=== PATIENT | female | born 1955 | race African-American/Black ===

== ENCOUNTER 2018-05-11 12:52 | Emergency (ER) | payer MEDICAID ==
[~2018-05-11] VITALS: Ht 160 cm; Wt 83.0 kg
[~2018-05-11 12:52] MED LIST: ALBU8.5H8 IH; AMLO2.5T29 PO; CODE118S2 PO; FLUT110HFA IH; GABA-318 PO; HYD25 PO; HYDR-3965 PO; IPRA4AER IH; LOVA10TA2 PO; OMEPRAZOLE PO; TOPI50TA24 PO
[2018-05-11] MEDS ORDERED: HYDROCODONE/ACETAMINOPHEN 5-325 MG TABLET PO ONE (14:00)
[2018-05-11 15:42] VITALS: BP 132/77
== END 2018-05-11 16:04 | disposition home or self-care (01) ==
LOC: EMS 12:55
DX: M77.51 Other enthesopathy of right foot and ankle (principal); G89.29 Other chronic pain; F41.9 Anxiety disorder, unspecified; M19.90 Unspecified osteoarthritis, unspecified site; J45.909 Unspecified asthma, uncomplicated; F32.9 Major depressive disorder, single episode, unspecified; G43.909 Migraine, unspecified, not intractable, without status migrainosus; F12.90 Cannabis use, unspecified, uncomplicated; Z90.710 Acquired absence of both cervix and uterus; Z88.1 Allergy status to other antibiotic agents; Z91.010 Allergy to peanuts; Z91.013 Allergy to seafood; Z88.8 Allergy status to other drugs, medicaments and biological substances; Z91.018 Allergy to other foods

== ENCOUNTER 2021-10-02 14:41 | Inpatient (IN) | payer MEDICAID ==
[~2021-10-02] VITALS: Ht 162.6 cm; Wt 96.8 kg
[~2021-10-02 14:41] MED LIST changes: -AMLO2.5T29 PO; +FLUT110H IH; -FLUT110HFA IH; -GABA-318 PO; +GABA600T10 PO; -HYD25 PO; +HYDR-4527 PO
[2021-10-02] MEDS ORDERED: ONDANSETRON HCL 4 MG/2 ML VIAL IVP ONE (15:45)
[2021-10-02] MEDS ORDERED: HYDROmorphone 2 MG/ML VIAL IVP ONE (15:45)
[2021-10-02] MEDS ORDERED: SODIUM CHLORIDE 0.9% 1,000 ML IV ONE ×2 (15:45→20:00)
[2021-10-02] MEDS ORDERED: ATEN-73 PO (15:53)
[2021-10-02] MEDS ORDERED: HYDR-4061 PO (15:53)
[2021-10-02] MEDS ORDERED: FERR325T23 PO (15:53)
[2021-10-02] MEDS ORDERED: OMEG-189 PO (15:53)
[2021-10-02] MEDS ORDERED: CARI-493 PO (15:53)
[2021-10-02] MEDS ORDERED: MONT-40 PO (15:53)
[2021-10-02] MEDS ORDERED: ACET-66 PO (15:53)
[2021-10-02] MEDS ORDERED: OMEP20 PO (15:56)
[2021-10-02 16:02] LABS: BASOPHILS % (AUTO) 0.6 % (0.0-2.0); EOSINOPHILS % (AUTO) 0.1 % (1.0-6.0); HEMATOCRIT 42.1 % (36-46); HEMOGLOBIN 13.5 g/dL (12.0-16.0); LYMPHOCYTES # (AUTO) 1.6 K/uL (1.0-4.8); LYMPHOCYTES % (AUTO) 14.2 % (22.0-44.0); MEAN CORPUSCULAR HEMOGLOBIN 25.9 pg (26.0-34.0); MEAN CORPUSCULAR HGB CONC 32.2 G/dL (31.0-37.0); MEAN CORPUSCULAR VOLUME 80 fL (80-100); MONOCYTES # (AUTO) 0.4 K/uL (0.1-1.0); MONOCYTES % (AUTO) 3.7 % (2.0-9.0); NEUTROPHILS # (AUTO) 9.4 K/uL (1.8-7.7); NEUTROPHILS % (AUTO) 81.4 % (40.0-70.0); PLATELET COUNT (AUTO) 313 K/uL (150-450); RED BLOOD CELL COUNT(AUTO) 5.23 MIL/uL (4.00-5.20); RED CELL DISTRIBUTION WIDTH 14.6 % (11.5-14.5)
[2021-10-02 16:11] LABS: ANION GAP 11 mmol/L (8-16); CALCIUM, TOTAL 10.2 mg/dL (8.8-10.5); CARBON DIOXIDE 28 mmol/L (22-29); CHLORIDE 101 mmol/L (98-107); CREATININE 0.78 mg/dL (0.60-1.30); GLOMERULAR FILTR. RATE CALC > 60 mL/min (>60); GLUCOSE,RANDOM 146 mg/dL (70-110); POTASSIUM 3.9 mmol/L (3.5-5.1); SODIUM SERUM 140 mmol/L (136-145); UREA NITROGEN, BLOOD 12 mg/dL (7-18)
[2021-10-02 16:17] LABS: ALANINE AMINOTRANSFERASE 29 U/L (12-78); ALBUMIN 4.4 g/dL (3.4-5.0); ALKALINE PHOSPHATASE 79 U/L (46-116); ASPARTATE AMINOTRANSFERASE 14 U/L (15-37); BILIRUBIN,TOTAL 0.4 mg/dL (0.1-1.0); LIPASE 87 U/L (73-393); TOTAL PROTEIN, SERUM 9.5 g/dL (6.4-8.2)
[2021-10-02] MEDS ORDERED: BARIUM SULFATE 0.1% SUSPENSION 450 ML BOTTLE PO ONE (16:30)
[2021-10-02] MEDS ORDERED: METOCLOPRAMIDE HCL 5 MG/ML 2 ML VIAL IVP ONE (16:30)
[2021-10-02] MEDS ORDERED: MORPHINE SULFATE 2 MG/ML SYRINGE IM ONE (19:15)
[2021-10-02] MEDS ORDERED: FentaNYL CITRATE PF 100 MCG/2 ML VIAL IVP ONE (19:30)
[2021-10-02] MEDS ORDERED: ACETAMINOPHEN 325 MG TABLET PO PRN (20:15)
[2021-10-02] MEDS ORDERED: ZOLPIDEM TARTRATE 5 MG TABLET PO PRN (20:15)
[2021-10-02] MEDS: DOCUSATE SODIUM 100 MG CAPSULE PO SCH (21:00)
[2021-10-02 21:13] LABS: COVID AG,FIA SOURCE NASAL SWAB
[2021-10-02] MEDS: FAMOTIDINE 20 MG TABLET PO SCH (21:41)
[2021-10-02 21:42] VITALS: BP 145/85
[2021-10-02] MEDS: ENOXAPARIN SODIUM 40 MG/0.4 ML PF SYRINGE SQ SCH (21:42)
[2021-10-02] MEDS: ONDANSETRON HCL 4 MG/2 ML VIAL IVP PRN (21:43)
[2021-10-02] MEDS: OxyCODONE HCL/ACETAMINOPHEN 5-325 MG TABLET PO PRN (21:44)
[2021-10-03] MEDS: MORPHINE SULFATE 2 MG/ML SYRINGE IVP PRN ×4 (01:25→20:09)
[2021-10-03 04:42] VITALS: BP 133/79
[2021-10-03 07:39] VITALS: BP 137/84
[2021-10-03] MEDS: ONDANSETRON HCL 4 MG/2 ML VIAL IVP PRN ×2 (08:07→20:09)
[2021-10-03] MEDS: DOCUSATE SODIUM 100 MG CAPSULE PO SCH ×2 (08:27→20:10)
[2021-10-03] MEDS: FAMOTIDINE 20 MG TABLET PO SCH ×2 (08:27→20:09)
[2021-10-03] MEDS: ENOXAPARIN SODIUM 40 MG/0.4 ML PF SYRINGE SQ SCH ×2 (08:31→20:10)
[2021-10-03] MEDS: OxyCODONE HCL/ACETAMINOPHEN 5-325 MG TABLET PO PRN ×2 (10:31→16:35)
[2021-10-03 11:16] VITALS: BP 118/71
[2021-10-03] MEDS: MetroNIDAZOLE 500 MG TABLET PO SCH (15:36)
[2021-10-03 15:40] VITALS: BP 123/78
[2021-10-03 20:01] VITALS: BP 131/81
[2021-10-04] MEDS: MetroNIDAZOLE 500 MG TABLET PO SCH ×2 (00:35→08:12)
[2021-10-04 03:10] VITALS: BP 115/77
[2021-10-04] MEDS: ONDANSETRON HCL 4 MG/2 ML VIAL IVP PRN (03:13)
[2021-10-04] MEDS: MORPHINE SULFATE 2 MG/ML SYRINGE IVP PRN ×2 (03:14→09:22)
[2021-10-04] MEDS: OxyCODONE HCL/ACETAMINOPHEN 5-325 MG TABLET PO PRN ×2 (06:14→11:20)
[2021-10-04 08:00] VITALS: BP 128/67
[2021-10-04] MEDS: FAMOTIDINE 20 MG TABLET PO SCH (08:12)
[2021-10-04] MEDS: ENOXAPARIN SODIUM 40 MG/0.4 ML PF SYRINGE SQ SCH (08:12)
[2021-10-04] MEDS: DOCUSATE SODIUM 100 MG CAPSULE PO SCH (08:14)
[2021-10-04] MEDS ORDERED: METR500 PO (10:21)
== END 2021-10-04 11:45 | disposition home or self-care (01) | DRG 245 ==
LOC: EMS 14:41 → 6S 20:00
PROVIDERS: ADMIT Internal Medicine; ATTEND Internal Medicine
DX: K50.918 Crohn's disease, unspecified, with other complication (principal); A09 Infectious gastroenteritis and colitis, unspecified; E66.9 Obesity, unspecified; F41.9 Anxiety disorder, unspecified; G43.909 Migraine, unspecified, not intractable, without status migrainosus; G89.29 Other chronic pain; F12.90 Cannabis use, unspecified, uncomplicated; Z68.36 Body mass index [BMI] 36.0-36.9, adult; M19.90 Unspecified osteoarthritis, unspecified site; Z20.822 Contact with and (suspected) exposure to COVID-19; Z90.710 Acquired absence of both cervix and uterus; Z91.19 Patient's noncompliance with other medical treatment and regimen; Z82.5 Family history of asthma and other chronic lower respiratory diseases; Z90.49 Acquired absence of other specified parts of digestive tract; Z88.6 Allergy status to analgesic agent; Z91.018 Allergy to other foods; Z91.013 Allergy to seafood; Z91.010 Allergy to peanuts
CPT/HCPCS: 71045; 74176; 80053; 83690; 84484; 85025; 85651; 86140; 93005; 99285; G0378; J1170; J1650; J2270; J2405; J2765; J3010; J7030; Q9967; 36415-L1; 36415-TC

== ENCOUNTER 2022-05-12 10:56 | Emergency (ER) | payer MEDICARE, MEDICAID ==
[~2022-05-12] VITALS: Ht 162.6 cm; Wt 98.0 kg
[~2022-05-12 10:56] MED LIST changes: +ACET-66 PO; +ATEN-73 PO; +CARI-493 PO; -CODE118S2 PO; +FERR325T23 PO; -FLUT110H IH; -HYDR-3965 PO; +HYDR-4061 PO; -IPRA4AER IH; +METR500 PO; +MONT-40 PO; +OMEG-189 PO; -OMEPRAZOLE PO
[2022-05-12] MEDS ORDERED: DICL100G31 TP (11:03)
[2022-05-12] MEDS ORDERED: HYDROCODONE/ACETAMINOPHEN 5-325 MG TABLET PO ONE (11:30)
[2022-05-12] MEDS ORDERED: ALBU8HFA IH (12:29)
[2022-05-12 14:20] VITALS: BP 116/65
== END 2022-05-12 14:42 | disposition home or self-care (01) ==
LOC: EMS 11:12
DX: M25.521 Pain in right elbow (principal); M77.11 Lateral epicondylitis, right elbow; F12.90 Cannabis use, unspecified, uncomplicated; F41.9 Anxiety disorder, unspecified; J45.909 Unspecified asthma, uncomplicated; F32.A Depression, unspecified; G43.909 Migraine, unspecified, not intractable, without status migrainosus; R56.9 Unspecified convulsions; Z90.49 Acquired absence of other specified parts of digestive tract; Z90.710 Acquired absence of both cervix and uterus
CPT/HCPCS: 99284; 73030-TC; 73060-TC; 73080-TC; 73090-TC; Z7502; Z7610

== ENCOUNTER 2023-01-07 11:34 | Emergency (ER) | payer MEDICARE, MEDICAID ==
[~2023-01-07] VITALS: Ht 165.1 cm; Wt 113.6 kg
[~2023-01-07 11:34] MED LIST changes: +ALBU18HF12 IH; -ALBU8.5H8 IH; -ATEN-73 PO; +DICL100G31 TP; +TOPI-255 PO; -TOPI50TA24 PO
[2023-01-07] MEDS ORDERED: METF-1211 PO (12:01)
[2023-01-07] MEDS ORDERED: ATEN-73 PO (12:01)
[2023-01-07] MEDS ORDERED: GABA-1181 PO (12:01)
[2023-01-07] MEDS ORDERED: INDA1.255 PO (12:02)
[2023-01-07 14:43] VITALS: TEMP 98.4
[2023-01-07 14:51] LABS: APPEARANCE,URINE CLEAR (CLEAR); BILIRUBIN,URINE NEGATIVE (NEGATIVE); GLUCOSE, URINE (UA) NEGATIVE (NEGATIVE); KETONES,URINE NEGATIVE (NEGATIVE); LEUKOCYTE ESTERASE ,URINE NEGATIVE (NEGATIVE); NITRATE,URINE NEGATIVE (NEGATIVE); OCCULT BLOOD,URINE NEGATIVE (NEGATIVE); PH,URINE 5.5 (5.0-8.0); PROTEIN,URINE TRACE mg/dL (NEGATIVE); SPECIFIC GRAVITIY, URINE 1.029 (1.003-1.030); UROBILINOGEN,URINE <=1.0 mg/dL (<=1.0)
[2023-01-07] MEDS ORDERED: ALBUTEROL SULFATE HFA 90 MCG/PUFF 8 GM INHALER IH ONE (15:45)
[2023-01-07] MEDS ORDERED: SODIUM CHLORIDE 0.9% 1,000 ML IV ONE (15:45)
[2023-01-07] MEDS ORDERED: FAMOTIDINE 20 MG/2 ML VIAL IVP ONE (15:45)
[2023-01-07] MEDS ORDERED: MORPHINE SULFATE 2 MG/ML SYRINGE IVP ONE (15:45)
[2023-01-07] MEDS ORDERED: ONDANSETRON HCL 4 MG/2 ML VIAL IVP ONE (15:45)
[2023-01-07] MEDS ORDERED: SODIUM CHLORIDE 0.9% 100 ML ONE (16:49)
[2023-01-07] MEDS ORDERED: IOHEXOL 350 MG/ML 100 ML VIAL ONE (16:49)
[2023-01-07 17:34] LABS: BASOPHILS % (AUTO) 0.7 % (0.0-2.0); EOSINOPHILS % (AUTO) 0.3 % (1.0-6.0); HEMATOCRIT 39.5 % (36-46); HEMOGLOBIN 12.6 g/dL (12.0-16.0); LYMPHOCYTES # (AUTO) 2.4 K/uL (1.0-4.8); LYMPHOCYTES % (AUTO) 27.2 % (22.0-44.0); MEAN CORPUSCULAR HEMOGLOBIN 25.7 pg (26.0-34.0); MEAN CORPUSCULAR HGB CONC 31.9 G/dL (31.0-37.0); MEAN CORPUSCULAR VOLUME 81 fL (80-100); MONOCYTES # (AUTO) 0.6 K/uL (0.1-1.0); MONOCYTES % (AUTO) 7.1 % (2.0-9.0); NEUTROPHILS # (AUTO) 5.6 K/uL (1.8-7.7); NEUTROPHILS % (AUTO) 64.7 % (40.0-70.0); PLATELET COUNT (AUTO) 288 K/uL (150-450); RED BLOOD CELL COUNT(AUTO) 4.88 MIL/uL (4.00-5.20); RED CELL DISTRIBUTION WIDTH 15.1 % (11.5-14.5)
[2023-01-07 18:03] LABS: ANION GAP 12 mmol/L (8-16); CALCIUM, TOTAL 9.6 mg/dL (8.8-10.5); CARBON DIOXIDE 27 mmol/L (22-29); CHLORIDE 99 mmol/L (98-107); CREATININE 0.66 mg/dL (0.60-1.30); GLOMERULAR FILTR. RATE CALC > 60 mL/min (>60); GLUCOSE,RANDOM 105 mg/dL (70-110); POTASSIUM 4.3 mmol/L (3.5-5.1); SODIUM SERUM 138 mmol/L (136-145)
[2023-01-07 18:06] LABS: ALANINE AMINOTRANSFERASE 22 U/L (12-78); ALBUMIN 3.9 g/dL (3.4-5.0); ALKALINE PHOSPHATASE 74 U/L (46-116); ASPARTATE AMINOTRANSFERASE 17 U/L (15-37); BILIRUBIN,TOTAL 0.5 mg/dL (0.1-1.0); LIPASE 65 U/L (73-393); TOTAL PROTEIN, SERUM 8.5 g/dL (6.4-8.2)
[2023-01-07] MEDS ORDERED: ACETAMINOPHEN 500 MG TABLET PO ONE (19:00)
[2023-01-07] MEDS: MORPHINE SULFATE 2 MG/ML SYRINGE IVP ONE ×2 (19:48→19:52)
[2023-01-07 22:15] VITALS: BP 145/82; PULSE 78; RESP 17
== END 2023-01-07 20:21 | disposition left against medical advice (07) ==
LOC: EMS 11:41
DX: R10.12 Left upper quadrant pain (principal); I20.9 Angina pectoris, unspecified; F41.9 Anxiety disorder, unspecified; R11.2 Nausea with vomiting, unspecified; M19.90 Unspecified osteoarthritis, unspecified site; J45.909 Unspecified asthma, uncomplicated; F32.A Depression, unspecified; G43.909 Migraine, unspecified, not intractable, without status migrainosus; G89.29 Other chronic pain; M54.9 Dorsalgia, unspecified; K50.90 Crohn's disease, unspecified, without complications; F12.90 Cannabis use, unspecified, uncomplicated; Z90.49 Acquired absence of other specified parts of digestive tract; Z90.710 Acquired absence of both cervix and uterus; Z98.51 Tubal ligation status; Z98.890 Other specified postprocedural states; Z91.010 Allergy to peanuts; Z91.013 Allergy to seafood; Z91.018 Allergy to other foods; Z88.8 Allergy status to other drugs, medicaments and biological substances
CPT/HCPCS: 99285; 74177; 96374; 96375; 96361; 80053; 81003; 83690; 85025; 36415; 93005; J3490; J2270; J2405; Q9967; J7030; J7050; J3535

== ENCOUNTER 2023-12-15 18:16 | Emergency (ER) | payer MEDICARE, MEDICAID ==
[~2023-12-15] VITALS: Ht 165.1 cm; Wt 100.0 kg
[~2023-12-15 18:16] MED LIST changes: -ACET-66 PO; +ATEN-73 PO; -DICL100G31 TP; +DICL2100G TP; -FERR325T23 PO; +GABA-1181 PO; -GABA600T10 PO; -HYDR-4061 PO; +INDA1.255 PO; -LOVA10TA2 PO; +METF-1211 PO; -METR500 PO; -MONT-40 PO; -OMEG-189 PO; -TOPI-255 PO; +TOPI-97 PO
[2023-12-15 18:33] VITALS: BP 117/70; PULSE 80; RESP 16; TEMP 98.2
[2023-12-15] MEDS ORDERED: SEMA1PEN3 SQ (18:48)
[2023-12-15] MEDS ORDERED: HYDR-4062 PO (18:54)
[2023-12-15] MEDS ORDERED: MONT-40 PO (18:54)
[2023-12-15 19:53] LABS: BASOPHILS % (AUTO) 0.5 % (0.0-2.0); EOSINOPHILS % (AUTO) 2.5 % (1.0-6.0); HEMATOCRIT 39.2 % (36-46); HEMOGLOBIN 12.2 g/dL (12.0-16.0); LYMPHOCYTES % (AUTO) 18.4 % (22.0-44.0); MEAN CORPUSCULAR HEMOGLOBIN 25.3 pg (26.0-34.0); MEAN CORPUSCULAR HGB CONC 31.2 G/dL (31.0-37.0); MEAN CORPUSCULAR VOLUME 81 fL (80-100); MONOCYTES # (AUTO) 0.6 K/uL (0.1-1.0); MONOCYTES % (AUTO) 5.5 % (2.0-9.0); NEUTROPHILS # (AUTO) 7.9 K/uL (1.8-7.7); NEUTROPHILS % (AUTO) 73.1 % (40.0-70.0); PLATELET COUNT (AUTO) 311 K/uL (150-450); RED BLOOD CELL COUNT(AUTO) 4.84 MIL/uL (4.00-5.20); RED CELL DISTRIBUTION WIDTH 14.2 % (11.5-14.5); WHITE BLOOD COUNT (AUTO) 10.8 K/uL (4.5-11.0)
[2023-12-15 19:59] LABS: ANION GAP 6 mmol/L (8-16); CALCIUM, TOTAL 9.9 mg/dL (8.8-10.5); CARBON DIOXIDE 30 mmol/L (22-29); CHLORIDE 102 mmol/L (98-107); CREATININE 0.86 mg/dL (0.60-1.30); GLOMERULAR FILTR. RATE CALC > 60 mL/min (>60); GLUCOSE,RANDOM 92 mg/dL (70-110); POTASSIUM 3.9 mmol/L (3.5-5.1); SODIUM SERUM 138 mmol/L (136-145); UREA NITROGEN, BLOOD 12 mg/dL (7-18)
[2023-12-15 20:06] LABS: TROPONIN I-HIGH SENSITIVITY 7 ng/L (<51)
[2023-12-15 20:26] LABS: B-TYPE NATRIURETIC PEPTIDE 13 pg/mL (0-100)
[2023-12-15 20:27] LABS: CREATINE KINASE, TOTAL ONLY 93 U/L (26-192)
== END 2023-12-15 21:01 | disposition left against medical advice (07) ==
LOC: EMS 18:16
DX: R00.2 Palpitations (principal); F41.9 Anxiety disorder, unspecified; J45.909 Unspecified asthma, uncomplicated; F32.A Depression, unspecified; G43.909 Migraine, unspecified, not intractable, without status migrainosus; M54.9 Dorsalgia, unspecified; F12.90 Cannabis use, unspecified, uncomplicated; Z90.49 Acquired absence of other specified parts of digestive tract; Z90.710 Acquired absence of both cervix and uterus; Z98.51 Tubal ligation status; Z98.890 Other specified postprocedural states; Z91.040 Latex allergy status; Z91.010 Allergy to peanuts; Z88.8 Allergy status to other drugs, medicaments and biological substances
CPT/HCPCS: 71045; 80048; 82550; 83880; 84484; 85025; 93005; 36415-L1; 36415-TC

== ENCOUNTER 2024-11-10 03:20 | Emergency (ER) | payer MEDICARE, MEDICAID ==
[~2024-11-10] VITALS: Ht 177.8 cm; Wt 90.9 kg
[~2024-11-10 03:20] MED LIST changes: -DICL2100G TP; -GABA-1181 PO; +HYDR-4062 PO; -HYDR-4527 PO; +MONT-40 PO; +SEMA1PEN3 SQ; -TOPI-97 PO
[2024-11-10 03:27] VITALS: TEMP 98.9
[2024-11-10 06:29] VITALS: BP 134/73; PULSE 70; RESP 16; O2SAT 99
[2024-11-10] MEDS: OxyCODONE HCL/ACETAMINOPHEN 5-325 MG TABLET PO ONE (06:38)
== END 2024-11-10 06:57 | disposition home or self-care (01) ==
LOC: EMS 03:39
DX: M25.522 Pain in left elbow (principal); J45.909 Unspecified asthma, uncomplicated; F12.90 Cannabis use, unspecified, uncomplicated; F41.9 Anxiety disorder, unspecified; F32.A Depression, unspecified; G43.909 Migraine, unspecified, not intractable, without status migrainosus; M19.90 Unspecified osteoarthritis, unspecified site; Z90.49 Acquired absence of other specified parts of digestive tract; Z90.710 Acquired absence of both cervix and uterus; Z79.899 Other long term (current) drug therapy; Z79.84 Long term (current) use of oral hypoglycemic drugs; Z88.8 Allergy status to other drugs, medicaments and biological substances; Z88.7 Allergy status to serum and vaccine; Z91.040 Latex allergy status; Z91.010 Allergy to peanuts; Z91.014 Allergy to mammalian meats
CPT/HCPCS: 99283